=== PATIENT | female | born 1970 | race American Indian/Alaskan Native ===

== ENCOUNTER 2020-06-04 14:26 | Outpatient (CLI) | payer OTHER ==
[2020-06-04 14:51] LABS: Basophils # (Auto) 0.1 K/mm3 (0.0-0.1); Basophils % (Auto) 1.1 % (0.0-1.8); Eosinophils # (Auto) 0.3 K/mm3 (0.0-0.4); Eosinophils % (Auto) 3.1 % (0.0-4.3); Hematocrit 35.9 % (30.3-42.9); Hemoglobin 12.6 gm/dl (10.1-14.3); Lymphocytes # (Auto) 2.8 K/mm3 (1.2-5.4); Lymphocytes % (Auto) 33.4 % (13.4-35.0); Mean Corpuscular HGB Conc 35 % (30-34); Mean Corpuscular Volume 87 fl (79-97); Monocytes # (Auto) 0.7 K/mm3 (0.0-0.8); Platelet Count 401 K/mm3 (140-440); Red Blood Count 4.14 M/mm3 (3.65-5.03); Red Cell Distribution Width 13.9 % (13.2-15.2)
[2020-06-04 15:16] LABS: Alanine Aminotransferase 16 units/L (7-56); Albumin 4.4 g/dL (3.9-5); BUN/Creatinine Ratio 13; Blood Urea Nitrogen 10 mg/dL (7-17); Calcium 9.7 mg/dL (8.4-10.2); Chol/HDL Ratio 3.34 %; HDL Cholesterol 79 mg/dL (40-59); Hemolysis Index 28; Iron 60 ug/dL (37-170); LDL Cholesterol,Direct 191 mg/dL (50-130); Total Iron Binding Capacity 314 mcg/dL (250-450)
== END 2020-06-04 14:27 | disposition home or self-care (01) ==
LOC: LAB 14:26
PROVIDERS: ATTEND Surgery
DX: E11.9 Type 2 diabetes mellitus without complications (principal); E66.01 Morbid (severe) obesity due to excess calories; K30 Functional dyspepsia
CPT/HCPCS: 36415; 80053; 80061; 82306; 82607; 82728; 83036; 83550; 84443; 85025; 85730

== ENCOUNTER 2020-06-20 11:00 | Outpatient (CLI) | payer OTHER | END 2020-06-21 11:00 | disposition home or self-care (01) | LOC: SLR 11:00 | PROVIDERS: ATTEND Surgery | DX: G47.30 Sleep apnea, unspecified (principal) | CPT/HCPCS: G0399 ==

== ENCOUNTER 2020-07-17 07:59 | Outpatient (CLI) | payer OTHER ==
--- NOTE | 2020-07-17 10:51 | Fluoroscopy Report ---
UPPER GI HISTORY: FUNCTIONAL DYSPEPSIA. TECHNIQUE: Single and double contrast barium technique utilized to evaluate the esophagus, stomach, and duodenal C-loop. FINDINGS: To begin the exam, swallowing was evaluated in the lateral position under direct fluorosco py. Swallowing was normal. No mucosal irregularity, mass, mass effect, or critical stenosis. There were no abnormal tertiary c ontractions as seen with dysmotility. No gastroesophageal reflux. IMPRESSION: Unremarkable exam. Fluoroscopic time: 1.5 minutes minutes Number of fluoroscopic images: 19 Signer Name: Mao Tang Jr, MD Signed: 07/17/2020 10:47 AM Workstation Name: [id number]
== END 2020-07-17 08:00 | disposition home or self-care (01) ==
LOC: FLUORO 07:59
PROVIDERS: ATTEND Surgery
DX: K30 Functional dyspepsia (principal)
CPT/HCPCS: 74246

== ENCOUNTER 2020-07-21 06:34 | Day surgery (SDC) | payer OTHER ==
[2020-07-21] MEDS ORDERED: SODIUM CHLORIDE 0.9% 1000 ML 1,000 ML IV SCH (07:00)
--- NOTE | 2020-07-21 07:38 | Anesthesia Day of Surgery ---
Anesthesia Day of Surgery - Day of Surgery Patient Examined: Yes Patient H&P Reviewed: Yes Patient is NPO: Yes
--- NOTE | 2020-07-21 07:38 | Anesthesia Consultation ---
Anesthesia Consult and Med Hx Date of service: 07/21/20 - Airway Anesthetic Teeth Evaluation: Good, Chipped (some chipped front upper teeth) ROM Head & Neck: Adequate Mental/Hyoid Distance: Adequate Mallampati Class: Class III Intubation Access Assessment: Possibly Difficult - Pre-Operative Health Status ASA Pre-Surgery Classification: ASA3 Proposed Anesthetic Plan: MAC - Cardiovascular System Hx Hypertension: Yes - Endocrine Hx Hypothyroidism: Yes - Other Systems Hx Obesity: Yes (BMI 48.3)
[2020-07-21] MEDS ORDERED: propofoL 200 MG/20 ML VIAL IV ONE ×2 (08:27→08:42)
[2020-07-21] MEDS ORDERED: LIDOCAINE MPF (2%) 20 MG/1 ML VIAL 5 ML ONE (08:42)
--- NOTE | 2020-07-21 08:57 | Discharge Summary ---
Providers - Providers Date of Admission: 07/21/20 Date of discharge: 07/21/20 Attending physician: CHASTITY PENN MD Primary care physician: GADIEL CORTES MD Hospitalization Reason for admission: pre-op egd for bariatric surgery Condition: Good Procedures: egd Hospital course: Pt presented for a pre-op EGD as part of planning for up coming bariatric surgery. Procedure was uneventful and pt recovered well and was discharged to home. Disposition: - TO HOME OR SELFCARE Final Discharge Diagnosis (Prints w/discharge instructions): gerd Core Measure Documentation - Palliative Care Palliative Care/ Comfort Measures: Not Applicable - Core Measures Any of the following diagnoses?: none Exam - Physical Exam Narrative exam: unchanged from pre-op Plan Activity: no restrictions Diet: low carbohydrate Follow up with: GADIEL CORTES MD [Primary Care Provider] - 7 Days
--- NOTE | 2020-07-21 08:58 | Operative Report ---
Operative Report Operative Report: DATE: 07/21/20 SURGERY: Upper endoscopy. SURGEON: Ahsan Regalado M.D. PROCEDURE: EGD with biopsy PRE OP DX: morbid obesity, GERD POST OP DX: morbid obesity, GERD TYPE OF ANESTHESIA: MAC. ESTIMATED BLOOD LOSS: None. COMPLICATIONS: None. SPECIMENS REMOVED: antral biopsy FINDINGS: 1. Small hiatal hernia. 2. gastritis INDICATIONS:INDICATION FOR PROCEDURE: Patient is a 49-year-old female with a long history of morbid obesity. She is planned to have a weight loss procedure and is here for preoperative planning EGD. PROCEDURE DETAILS: After consent was reviewed, patient was taken back to the operating room where patient was placed in the left lateral decubitus position and a bite block was placed in the mouth. After a time-out was called, MAC anesthesia was initiated. I then passed the endoscope into her oropharynx, into her esophagus, visualized the entire esophagus, which was all within normal limits. Z-line was noted to about 35cm from incisors. I then visualized the stomach and the first portion of the duodenum and there were no abnormalities I could clearly visualize except for antral gastritis. A cold forceps biopsy of the antrum was taken and will be sent to pathology to evaluate for H.pylori. I then retroflexed the scope in the stomach and visualized the hiatus and I could see a small hiatal hernia. I then desufflated the stomach and removed the endoscope. Patient tolerated procedure well and was transferred to recovery room in good and stable condition.
--- NOTE | 2020-07-21 11:46 | Post Anesthesia Evaluation ---
- Post Anesthesia Evaluation Patient Participated: Yes Airway Patent: Yes Stable Respiratory Function: Yes Nausea/Vomiting: No Temp > 96.8F: Yes Pain Manageable: Yes Adequeate Hydration: Yes Anesthesia Complications: No
[2020-07-21 16:46] VITALS: BP 134/87
== END 2020-07-21 06:35 | disposition home or self-care (01) ==
LOC: GIO 06:34
PROVIDERS: ATTEND Surgery
DX: K21.9 Gastro-esophageal reflux disease without esophagitis (principal); E66.01 Morbid (severe) obesity due to excess calories; K44.9 Diaphragmatic hernia without obstruction or gangrene; K31.89 Other diseases of stomach and duodenum; K29.70 Gastritis, unspecified, without bleeding; I10 Essential (primary) hypertension; E03.9 Hypothyroidism, unspecified; Z68.42 Body mass index [BMI] 45.0-49.9, adult; Z79.899 Other long term (current) drug therapy
CPT/HCPCS: 43239; 88305; 88342; J2704

== ENCOUNTER 2020-08-17 07:30 | Inpatient (IN) | payer OTHER ==
--- NOTE | 2020-08-12 09:53 | Anesthesia Consultation ---
Anesthesia Consult and Med Hx Date of service: 08/17/20 - Airway Anesthetic Teeth Evaluation: Good ROM Head & Neck: Adequate Mental/Hyoid Distance: Adequate Mallampati Class: Class II Intubation Access Assessment: Probably Good - Pulmonary Exam CTA: Yes - Cardiac Exam Cardiac Exam: RRR - Pre-Operative Health Status ASA Pre-Surgery Classification: ASA3 Proposed Anesthetic Plan: General - Pulmonary Hx Smoking: No Hx Respiratory Symptoms: No (COVID infection 05/2020; some residual fatigue but otherwise resolved) Home Oxygen Therapy: No Hx Sleep Apnea: No (no significant MIKE on recent sleep study) - Cardiovascular System Hx Hypertension: Yes Hx Heart Attack/AMI: No Hx Percutaneous Transluminal Coronary Angioplasty (PTCA): No Hx Cardia Arrhythmia: No - Central Nervous System CVA: No - Endocrine Hx Renal Disease: No Hx Liver Disease: No Hx Insulin Dependent Diabetes: No Hx Non-Insulin Dependent Diabetes: No Hx Hypothyroidism: Yes - Other Systems Hx Obesity: Yes (BMI 47) - Additional Comments Anesthesia Medical History Comments: No hx anesthetic complications.
[2020-08-12 09:54] LABS: Hematocrit 38.6 % (30.3-42.9); Hemoglobin 13.1 gm/dl (10.1-14.3); Mean Corpuscular HGB Conc 34 % (30-34); Mean Corpuscular Volume 87 fl (79-97); Platelet Count 450 K/mm3 (140-440); Red Blood Count 4.42 M/mm3 (3.65-5.03); Red Cell Distribution Width 14.1 % (13.2-15.2)
[2020-08-12 10:21] LABS: Alanine Aminotransferase 17 units/L (7-56); BUN/Creatinine Ratio 10; Blood Urea Nitrogen 8 mg/dL (7-17); Calcium 9.7 mg/dL (8.4-10.2); Hemolysis Index 0
[~2020-08-17 07:30] MED LIST: ACETAMINOPHEN IV 1,000 MG/100 ML BOTTLE IV NR; LACTATED RINGERS 1,000 ML IV SCH; SCOPOLAMINE TRANSDERMAL PATCH 72 HR TD NR
[2020-08-17] MEDS ORDERED: metroNIDAZOLE/NS 500 MG/100 ML 500 MG/100 ML BAG IV NR (09:00)
[2020-08-17] MEDS ORDERED: ENOXAPARIN 40 MG/0.4 ML INJ SUB-Q SCH (09:00)
[2020-08-17] MEDS ORDERED: HYDROmorphone 1 MG/1 ML INJ IV PRN ×2 (10:00)
[2020-08-17] MEDS ORDERED: GABAPENTIN 500 MG/10 ML ORAL LIQD PO NR (10:00)
[2020-08-17] MEDS ORDERED: ONDANSETRON 4 MG/2 ML INJ IV PRN ×2 (10:00→14:30)
[2020-08-17] MEDS ORDERED: MIDAZOLAM 2 MG/2 ML INJ IV NR (10:00)
[2020-08-17] MEDS ORDERED: LIDOCAINE 1%/EPINEPHRINE 1:100,000 VIAL (20 ML) INFILTRATI ONE ×2 (10:07→12:40)
[2020-08-17] MEDS ORDERED: BUPIVACAINE/PF (0.25%) 2.5 MG/ML 30 ML VIAL INFILTRATI ONE ×2 (10:07→12:40)
[2020-08-17] MEDS ORDERED: ONDANSETRON 4 MG/2 ML INJ ONE (11:00)
[2020-08-17] MEDS ORDERED: LIDOCAINE MPF (2%) 20 MG/1 ML VIAL 5 ML ONE (11:00)
[2020-08-17] MEDS ORDERED: ROCURONIUM 50 MG/5 ML INJ IV ONE (11:00)
[2020-08-17] MEDS ORDERED: KETOROLAC 30 MG/1 ML INJ ONE ×2 (11:00→12:28)
[2020-08-17] MEDS ORDERED: PHENYLEPHRINE/NS 1,000 MCG/10 ML SYRINGE (OR USE) IV ONE (11:00)
[2020-08-17] MEDS ORDERED: dexAMETHasone 20 MG/5 ML VIAL ONE (11:00)
[2020-08-17] MEDS ORDERED: KETAMINE/STERILE WATER 50 MG/ML SYRINGE ONE (11:02)
[2020-08-17] MEDS ORDERED: ePHEDrine SULFATE 50 MG/1 ML INJ ONE (11:53)
[2020-08-17] MEDS ORDERED: SUGAMMADEX SODIUM 200 MG/2 ML VIAL IV ONE (12:25)
[2020-08-17] MEDS ORDERED: SODIUM CHLORIDE 0.9% IRR 1,500 ML BOTTLE IR ONE (12:41)
--- NOTE | 2020-08-17 13:10 | Operative Report ---
Operative Report Operative Report: DATE:08/17/2020 Surgeon: Ahsan Regalado MD [employer] surgeon: Silvina Xiao CSA MD Pre-op Dx: morbid obesity, hiatal hernia Post-op Dx: morbid obesity, hiatal hernia Procedure: 1. laparoscopic sleeve gastrectomy, 2. hiatal hernia repair Anesthesia: GETA and TAP block EBL: <10ml Specimen: gastric remnant Complication: none immediate Indication: 49 year old female with a history of morbid obesity . Pt is here for sleeve gastrectomy for weight loss to achieve healthier weight and improve or resolve his co-morbidities. She expressed understanding of the risks and benefits. PROCEDURE IN DETAIL: After consent was reviewed, patient was taken back to the operating room, where patient was placed supine on the bed with both arms out. The patient's legs were doubly strapped to the bed. Patient had a foot board in place. Patient had a body warmer placed by anesthesia. General anesthesia was induced with successful endotracheal intubation. Patient was then prepped and draped in normal sterile surgical fashion. After a time-out was called, I made a stab incision in the left subcostal area and placed a Veress needle through this incision and insufflated the abdomen to 18 mmHg pressure. I then counted down a handsbreadth below the xiphoid process in the midline and slightly left lateral injected local anesthetic and made about 1 cm transverse incision. I then used a 5-mm Optiview trocar to enter into the abdomen. There was no gross injury to any intra-abdominal structures. I then placed a 30-degree scope through this port and inspected the abdomen. I then placed a 5-mm port in the right upper quadrant, and 1 5mm in the epigastric area below the costovertebral angle. I then placed a 15-mm port about a handsbreadth in the right mid abdomen. After which a 5mm port was placed in left upper quadrant port along the anterior axillary line in a similar fashion. A liver retractor was placed to the epigastric port to elevate the left lateral lobe and liver. There was a small hiatal hernia appreciated that was accentuated with right and left crural dissection. Hiatal hernia sac was dissected from the crura until the GE junction was resting about 2cm below the level of the diaphragm without tension. An anterior crura-plasty was preformed a U-stitch using surgidac suture. The a nterior gastric fat pad was excised. Starting approximately 6 cm proximal to the pylorus, using a LigaSure device the short gastrics were taken all the way to the left kavitha. Once the lateral portion of the stomach was mobile anesthesia passed a 40 Kazakh bougie along the medial aspect to act as a stent. Using serial firings of endoscopic stapler to gold, followed by 4 blue, the lateral portion of the stomach was transected making sure to did not close to the 2 cm to the incisura. All staple loads were supported with Ethicon buttress strips. The sleeve stomach was seen to be without kink obstruction or twisting. The pressure was decreased to 10 mmHg. The staple line was inspected for approximately 5 minutes. There was no significant bleeding appreciated except for a slight loose at the most distal portion of the staple line. Bleeding was minimal and easily controlled with minimal cautery. Tisseel was then sprayed along the entirety of the staple line. The liver retractor was removed. A TAP block was performed with 60ml of 0.25% marcaine along bilateral mid axillary lines starting from the subcostal region to just below the level of the umbilicus This was after the gastric remnant was grasped and pulled into the 15 mm trocar site. The stomach was extracted via the 15 mm trocar site. After the fascia had to be stretched with a Latrice clamp to easily remove the stomach, the fascia was closed using a trav beatriz device at the level of the fascia with an 0 PDS. trocars were removed under direct visualization. All skin incisions were closed with 4-0 Monocryl followed by Dermabond. Patient was awoken, extubated, and taken to recovery stable condition. All counts were correct.
[2020-08-17] MEDS: KETOROLAC 30 MG/1 ML INJ IV SCH ×2 (14:00→22:06)
[2020-08-17] MEDS ORDERED: MORPHINE 2 MG/1 ML INJ IV PRN (14:30)
[2020-08-17] MEDS ORDERED: HYDROcodone/Acetaminophen 7.5-325MG-15ML ORAL LIQD PO PRN (14:30)
[2020-08-17] MEDS ORDERED: hydrALAZINE 20 MG/1 ML INJ IV PRN (14:30)
[2020-08-17] MEDS ORDERED: METOCLOPRAMIDE 10 MG/2 ML INJ IV PRN (15:00)
--- NOTE | 2020-08-17 15:32 | Post Anesthesia Evaluation ---
- Post Anesthesia Evaluation Patient Participated: Yes Airway Patent: Yes Stable Respiratory Function: Yes Nausea/Vomiting: No Temp > 96.8F: Yes Pain Manageable: Yes Adequeate Hydration: Yes Anesthesia Complications: No Block Receding Appropriately: Not Applicable Patient on Ventilator: No
--- NOTE | 2020-08-17 15:32 | Anesthesia Day of Surgery ---
Anesthesia Day of Surgery - Day of Surgery Patient Examined: Yes Patient H&P Reviewed: Yes Patient is NPO: Yes (Late entry. I saw patient preoperatively)
--- NOTE | 2020-08-17 16:04 | Event Note ---
Date: 08/17/20 Ms. Blum is a patient who had bariatric surgery today with a history of testing positive for COVID on 08/12/2020. She tested positive initially 06/2020 and has fully recovered. Like many patients in this phase of the COVID-19 pandemic she is continuing to shed virus particles triggering a positive test, but is no longer contagious. Per the CDC, and Dr. Wakefield (head of ID) patients are no longer considered contagious 14 days after testing positive or upon onset of symptoms. Immune compromised patients up to 20 days on average. There is no need to retest or consider an asymptomatic patient contagious until 90 days from initial infection. This patient needs to be transferred to the bariatric floor that is designed and staffed for the specific needs of the bariatric patient. I spoke with Tiarra Pena the CNO about this and we are in agreement she does not meet the criteria to not be on the Bariatric floor. She should be transferred to the appropriate bariatric unit as soon as a bed is available.
[2020-08-17] MEDS: ceFAZolin/NS 1 GM/50 ML 1 GM/50 ML BAG IV SCH (17:26)
[2020-08-17] MEDS: metroNIDAZOLE/NS 500 MG/100 ML 500 MG/100 ML BAG IV SCH (17:26)
[2020-08-17] MEDS: FAMOTIDINE 20 MG/2 ML INJ IV SCH (18:27)
[2020-08-17] MEDS: ACETAMINOPHEN IV 1,000 MG/100 ML BOTTLE IV SCH (18:27)
[2020-08-17] MEDS: LACTATED RINGERS 1,000 ML IV SCH (22:59)
[2020-08-18] MEDS: SIMETHICONE 80 MG CHEW TAB PO PRN ×3 (00:05→21:07)
[2020-08-18] MEDS: ACETAMINOPHEN IV 1,000 MG/100 ML BOTTLE IV SCH ×4 (00:18→20:49)
[2020-08-18] MEDS: metroNIDAZOLE/NS 500 MG/100 ML 500 MG/100 ML BAG IV SCH ×2 (01:51→10:18)
[2020-08-18] MEDS ORDERED: ceFAZolin/NS 1 GM/50 ML 1 GM/50 ML BAG IV SCH (02:00)
[2020-08-18] MEDS: ceFAZolin/NS 1 GM/50 ML 1 GM/50 ML BAG IV SCH (03:11)
[2020-08-18] MEDS: KETOROLAC 30 MG/1 ML INJ IV SCH ×4 (03:31→21:07)
[2020-08-18 05:31] LABS: Basophils % (Auto) 0.1 % (0.0-1.8); Hematocrit 37.3 % (30.3-42.9); Hemoglobin 12.2 gm/dl (10.1-14.3); Lymphocytes # (Auto) 1.4 K/mm3 (1.2-5.4); Lymphocytes % (Auto) 10.9 % (13.4-35.0); Mean Corpuscular HGB Conc 33 % (30-34); Mean Corpuscular Volume 88 fl (79-97); Monocytes # (Auto) 0.9 K/mm3 (0.0-0.8); Monocytes % (Auto) 7.2 % (0.0-7.3); Platelet Count 373 K/mm3 (140-440); Red Blood Count 4.25 M/mm3 (3.65-5.03); Red Cell Distribution Width 14.1 % (13.2-15.2)
[2020-08-18] MEDS: LEVOTHYROXINE 25 MCG TAB PO SCH (05:53)
[2020-08-18 05:54] LABS: Alanine Aminotransferase 15 units/L (7-56); Albumin 3.8 g/dL (3.9-5); Blood Urea Nitrogen 7 mg/dL (7-17); Calcium 8.8 mg/dL (8.4-10.2); Hemolysis Index 0
[2020-08-18 06:02] LABS: BUN/Creatinine Ratio 10
[2020-08-18] MEDS: LEVOTHYROXINE 112 MCG TAB PO SCH (07:03)
--- OUTSIDE RECORDS SUMMARY | 2020-08-18 07:10 | External Medical Summary ---
:1970 Author Organization [facility], [facility] Address [address] [place] [address] Care Team Providers Name Role Phone Ahsan Regalado Unavailable [phone] PROBLEMS Type Condition ICD9-CM [id number] Onset Condition W/U Status Risk SNOM ED Notes Code Code Dates Status Code Problem Body mass Z68.42 Active confirmed 289570555 index [BMI] 45.0-49.9, adult Problem Dietary Z71.3 Active confirmed 557114895 counseling and surveillance Problem Functional K30 Active confirmed 8976736 dyspepsia Problem Gastro-esopha K21.9 Active confirmed 804131 005 geal reflux disease without esophagitis Problem Essential I10 Active confirmed 06381544 (primary) hypertension Problem Sleep G47.9 Active confirmed 37261314 disorder, unspecified Problem Morbid E66.01 Active confirmed 788643996 (severe) obesity due to excess calories Problem Hypothyroidis E03.9 Active confirmed 937736 08 m, unspecified ALLERGIES No Known Allergies ENCOUNTERS from 1970 to 2020-08-14 Encounter Location Date Provider Diagnosis [facility] Jul, Ahsan Regalado [address] ([address] obesity due to excess of [place], [place] calorie s E66.01 ; [address] Hypothyroidism, unspecified E03 .9 and Essential (prim harrison) hypertension I1 0 IMMUNIZATIONS No Information SOCIAL HISTORY Sex Assigned At : Social History Observation Description Sex Assigned At Unknown REASON FOR REFERRAL from 1970 to 2020-08-14 Diagnosis 1 Hypothyroidism, unspecified (E03.9) Diagnosis 2 Morbid (severe) obesity due to excess calories (E66.01) Diagnosis 3 Essential (primary) hyperten alfonso (I10) Diagnosis 4 Functional dyspepsia (K30) Diagnosis 5 Sleep disorder, unspecified (G47.9) Diagnosis 6 Dietary counseling and surve illance (Z71.3) Diagnosis 7 Body mass index [BMI] 45.0-4 9.9, adult (Z68.42) Diagnosis 8 Pain in right knee (M25.561) Diagnosis 9 Gastro-esophageal reflux dis ease without esophagitis (K21.9) Referral Organization [facility] Referring Provider First Name Ahsan Referring Provider Last Name Fabricio Referring Provider Specialty Surgery Referred Provider [facility], - Referral Priority Routine VITAL SIGNS Height 63 in Jul, Weight 267.8 lbs Jul, Temperature 97.7 degrees Fahrenheit Jul, BMI 47.43 kg/m2 Jul, Blood pressure systolic 151 mm Hg Jul, Blood pressure diastolic 94 mm Hg Jul, MEDICATIONS Medication SIG (Take, Route, Notes Start Date End Date Status Frequency, Duration) Levothyroxine Sodium 37.5 Acti ve Hydrocodone-Acetaminophen 15 ml as needed Jul, Jul, Active 7.5-325 MG/15ML Orally every 6 hrs for 7 days Omeprazole 40 MG 1 capsule Orally Jul, Active Once a day for 30 day(s) Hydrochlorothiazide Activ e Biotin Active Zofran 4 MG 1-2 tablet Orally Jul, Acti ve every 4-6 hours prn nausea for 30 day(s) Multivitamin Active PROCEDURES No Information RESULTS No Results REASON FOR VISIT PreOp Sleeve MEDICAL (GENERAL) HISTORY Type Description Date Medical History hypothyroid Medical History gerd Medical History right knee pain Medical History eczema Medical History htn Surgical History 2004 Hospitalization History as above Goals Section No Information Health Concerns No Information MEDICAL EQUIPMENT No Information MENTAL STATUS No Information FUNCTIONAL STATUS No Information ASSESSMENTS Encounter Date Diagnosis Assessment Notes Treatment Notes Treatm ent Clinical Notes Jul, Morbid (severe) An hour was spent obesity due to with patient excess calories reinforcing diet, (ICD-10 - E66.01) vitamin requirements and lifestyle education, A quiz was administered and reviewed to verify understanding of intended procedure and post operative care. Consent forms for sleeve gastrectomy were reviewed with patient and signed answering all questions, Pre-operative labs were ordered. Jul, Hypothyroidism, continue unspecified (ICD-10 medications - E03.9) Jul, Essential (primary) Should resolve or hypertension greatly improve (ICD-10 - I10) with weight loss after bariatric surgery Jul, Other pt encounter took about 45 minutes PLAN OF TREATMENT Medication Medication Name Sig Start Date Stop Date Omeprazole 40 MG 1 capsule Orally Once a day Jul, for 30 day(s) Zofran 4 MG 1-2 tablet Orally every 4-6 Jul, hours prn nausea for 30 day(s) Hydrocodone-Acetaminophen 15 ml as needed Orally every Jul, 2 021 16 Jul, 2020 7.5-325 MG/15ML 6 hrs for 7 days Treatment Notes Assessment Notes Clinical Notes Morbid (severe) obesity due to An hour was spent with leighton t excess calories reinforcing diet, vitamin requirements and lifestyle education, A quiz was administered and reviewed to verify understanding of intended procedure and post operative care. Consent forms for sleeve gastrectomy were reviewed with patient and signed answering all questions, Pre-operative labs were ordered. Hypothyroidism, unspecified continue medications Essential (primary) hypertension Should resolve or greatly i mprove with weight loss after bariatric surgery Referrals Referral Date Details Next Appt Details for surgery Reason: Provider Name:Ahsan Regalado, 2020-07-30 9 07:30:00 AM, [address] [place] [address], [address], [place], [address], [phone] Insurance Providers Payer Name Payer Payer Insured Name Patient Coverage Covera ge End Address Phone Relationship to Start Date Vic e Insured [employer] [address] [address] [phone] Nathalie Blum [facility] [id number]
[2020-08-18] MEDS ORDERED: LEVOTHYROXINE 137 MCG PO SCH (10:00)
[2020-08-18] MEDS: LACTATED RINGERS 1,000 ML IV SCH (10:12)
[2020-08-18] MEDS: FAMOTIDINE 20 MG/2 ML INJ IV SCH (10:14)
[2020-08-18] MEDS: ENOXAPARIN 40 MG/0.4 ML INJ SUB-Q SCH (10:15)
--- NOTE | 2020-08-18 10:39 | Post Anesthesia Evaluation ---
- Post Anesthesia Evaluation Patient Participated: Yes Airway Patent: Yes Stable Respiratory Function: Yes Nausea/Vomiting: No Temp > 96.8F: Yes Pain Manageable: Yes Adequeate Hydration: Yes Anesthesia Complications: No Block Receding Appropriately: Yes Patient on Ventilator: No
--- NOTE | 2020-08-18 11:54 | Progress Note ---
Assessment and Plan POD#1 s/p lap sleeve gastrectomy with hiatal hernia repair. Afebrile and stable showing no clinical signs of leak or bleeding. Will continue to encourage PO intake and frequent ambulation. Will plan for discharge tomorrow. Subjective Date of service: 08/18/20 Patient Reports: Positive: no new complaints, afebrile. Negative: nausea (no acute events overnight. pt is tolerating small sips of liquids and ambulating. ), vomiting Objective Vital Signs - 12hr 08/18/20 08/18/20 08/18/20 00:18 01:18 03:31 Temperature Pulse Rate Respiratory 17 18 17 Rate Blood Pressure O2 Sat by Pulse Oximetry 08/18/20 08/18/20 08/18/20 04:01 05:46 06:47 Temperature 97.7 F Pulse Rate 92 H Respiratory 17 18 17 Rate Blood Pressure 132/80 O2 Sat by Pulse 98 Oximetry 08/18/20 08/18/20 07:34 07:47 Temperature 97.7 F Pulse Rate 89 Respiratory 18 17 Rate Blood Pressure 136/79 O2 Sat by Pulse 97 Oximetry - General physical appearance well developed, well nourished, no distress, no pain, obese - Respiratory normal expansion, normal respiratory effort - Abdomen soft, not tender, not guarding, not rigid, other (incisions c/d/i, appropriatley tender to palpation) - Labs 08/18/20 05:19 08/18/20 05:19 Diabetes panel 08/18/20 Range/Units 05:19 Sodium 138 (137-145) mmol/L Potassium 4.1 (3.6-5.0) mmol/L Chloride 99.4 (98-107) mmol/L Carbon Dioxide 30 (22-30) mmol/L BUN 7 (7-17) mg/dL Creatinine 0.7 (0.6-1.2) mg/dL Glucose 109 H (65-100) mg/dL Calcium 8.8 (8.4-10.2) mg/dL AST 25 (5-40) units/L ALT 15 (7-56) units/L Alkaline Phosphatase 61 (35-129) units/L Total Protein 7.0 (6.3-8.2) g/dL Albumin 3.8 L (3.9-5) g/dL Calcium panel 08/18/20 Range/Units 05:19 Calcium 8.8 (8.4-10.2) mg/dL Albumin 3.8 L (3.9-5) g/dL Pituitary panel 08/18/20 Range/Units 05:19 Sodium 138 (137-145) mmol/L Potassium 4.1 (3.6-5.0) mmol/L Chloride 99.4 (98-107) mmol/L Carbon Dioxide 30 (22-30) mmol/L BUN 7 (7-17) mg/dL Creatinine 0.7 (0.6-1.2) mg/dL Glucose 109 H (65-100) mg/dL Calcium 8.8 (8.4-10.2) mg/dL Adrenal panel 08/18/20 Range/Units 05:19 Sodium 138 (137-145) mmol/L Potassium 4.1 (3.6-5.0) mmol/L Chloride 99.4 (98-107) mmol/L Carbon Dioxide 30 (22-30) mmol/L BUN 7 (7-17) mg/dL Creatinine 0.7 (0.6-1.2) mg/dL Glucose 109 H (65-100) mg/dL Calcium 8.8 (8.4-10.2) mg/dL Total Bilirubin 0.40 (0.1-1.2) mg/dL AST 25 (5-40) units/L ALT 15 (7-56) units/L Alkaline Phosphatase 61 (35-129) units/L Total Protein 7.0 (6.3-8.2) g/dL Albumin 3.8 L (3.9-5) g/dL
[2020-08-19] MEDS: KETOROLAC 30 MG/1 ML INJ IV SCH ×2 (01:08→10:38)
[2020-08-19] MEDS: LEVOTHYROXINE 112 MCG TAB PO SCH (05:55)
[2020-08-19] MEDS: LEVOTHYROXINE 25 MCG TAB PO SCH (05:55)
[2020-08-19] MEDS: LACTATED RINGERS 1,000 ML IV SCH (06:06)
[2020-08-19 08:46] VITALS: BP 131/76
[2020-08-19 09:00] LABS: Basophils # (Auto) 0.1 K/mm3 (0.0-0.1); Basophils % (Auto) 0.5 % (0.0-1.8); Eosinophils % (Auto) 0.2 % (0.0-4.3); Hemoglobin 11.1 gm/dl (10.1-14.3); Lymphocytes # (Auto) 2.1 K/mm3 (1.2-5.4); Lymphocytes % (Auto) 22.7 % (13.4-35.0); Mean Corpuscular HGB Conc 34 % (30-34); Mean Corpuscular Volume 88 fl (79-97); Monocytes # (Auto) 0.8 K/mm3 (0.0-0.8); Monocytes % (Auto) 8.7 % (0.0-7.3); Platelet Count 312 K/mm3 (140-440); Red Blood Count 3.75 M/mm3 (3.65-5.03); Red Cell Distribution Width 13.7 % (13.2-15.2)
[2020-08-19 09:22] LABS: Alanine Aminotransferase 12 units/L (7-56); Albumin 3.1 g/dL (3.9-5); BUN/Creatinine Ratio 11; Blood Urea Nitrogen 9 mg/dL (7-17); Calcium 8.3 mg/dL (8.4-10.2); Hemolysis Index 5
[2020-08-19] MEDS: ENOXAPARIN 40 MG/0.4 ML INJ SUB-Q SCH (10:23)
[2020-08-19] MEDS: FAMOTIDINE 20 MG/2 ML INJ IV SCH (10:23)
--- NOTE | 2020-08-19 11:03 | Discharge Summary ---
Providers - Providers Date of Admission: 08/17/20 09:18 Date of discharge: 08/19/20 Attending physician: CHASTITY PENN MD 08/17/20 13:02 Physical Therapy Evaluation and Treat [CONS] Routine Comment: Reason For Exam: post op bariatric surgery Primary care physician: GADIEL CORTES MD Hospitalization Reason for admission: s/p gastric sleeve with hiatal hernia repair Condition: Good Procedures: lap gastric sleeve w/ HHR Hospital course: Pt had an uneventful lap gastric sleeve with hiatal hernia repair. She recovered well after the procedure having normal vital signs, and labs. She was tolerating sips of clear liquids and ambulating well with pain well controlled. She showed no clinical signs of leak or bleeding prior to discharge. Disposition: - TO HOME OR SELFCARE Final Discharge Diagnosis (Prints w/discharge instructions): morbid obesity, hiatal hernia Core Measure Documentation - Palliative Care Palliative Care/ Comfort Measures: Not Applicable - Core Measures Any of the following diagnoses?: none Exam - Constitutional Vitals: Temp Pulse Resp BP Pulse Ox 98.0 F 73 18 131/76 97 08/19/20 07:50 08/19/20 04:58 08/19/20 07:50 08/19/20 07:50 08/19/20 09:58 General appearance: Present: no acute distress, well-nourished, obese - Respiratory Respiratory effort: normal - Cardiovascular Heart Sounds: Present: S1 & S2 - Extremities Extremities: no ischemia - Abdominal General gastrointestinal: Present: soft, non-tender, non-distended Plan Activity: advance as tolerated Diet: clear liquids Wound: open to air, keep clean and dry Additional Instructions: pt will return to the office for post op visit in 2 weeks Follow up with: GADIEL CORTES MD [Primary Care Provider] - 7 Days
== END 2020-08-19 16:29 | disposition home or self-care (01) | DRG 619 ==
LOC: 3A 09:18 → 3B-SURG 23:21
PROVIDERS: ADMIT Surgery; ATTEND Surgery
PROC: 0DB64Z3 Excision of Stomach, Percutaneous Endoscopic Approach, Vertical (ICD-10-PCS; principal; 2020-08-17)
PROC: 0BQT4ZZ Repair Diaphragm, Percutaneous Endoscopic Approach (ICD-10-PCS; 2020-08-17)
DX: E66.01 Morbid (severe) obesity due to excess calories (principal); U07.1 COVID-19; Z68.42 Body mass index [BMI] 45.0-49.9, adult; Z71.3 Dietary counseling and surveillance; K44.9 Diaphragmatic hernia without obstruction or gangrene; I10 Essential (primary) hypertension; G47.9 Sleep disorder, unspecified; E03.9 Hypothyroidism, unspecified; K21.9 Gastro-esophageal reflux disease without esophagitis; Z79.899 Other long term (current) drug therapy; Z79.891 Long term (current) use of opiate analgesic; Z79.01 Long term (current) use of anticoagulants; Z82.49 Family history of ischemic heart disease and other diseases of the circulatory system; Z86.16 Personal history of COVID-19; Z82.62 Family history of osteoporosis; Z83.49 Family history of other endocrine, nutritional and metabolic diseases; Z84.89 Family history of other specified conditions
CPT/HCPCS: 36415; 80053; 84703; 85025; 85027; 88307; G0378; C9250; J0131; J0690; J1100; J1170; J1650; J1885; J2250; J2270; J2370; J2405; J2704; J2765; J3490; J7120; U0003

== ENCOUNTER 2020-09-23 11:48 | Outpatient (CLI) | payer OTHER ==
[2020-09-23 13:17] LABS: Basophils # (Auto) 0.1 K/mm3 (0.0-0.1); Basophils % (Auto) 1.3 % (0.0-1.8); Eosinophils # (Auto) 0.2 K/mm3 (0.0-0.4); Eosinophils % (Auto) 3.1 % (0.0-4.3); Hematocrit 37.5 % (30.3-42.9); Hemoglobin 12.7 gm/dl (10.1-14.3); Lymphocytes # (Auto) 2.4 K/mm3 (1.2-5.4); Mean Corpuscular HGB Conc 34 % (30-34); Mean Corpuscular Volume 87 fl (79-97); Monocytes # (Auto) 0.7 K/mm3 (0.0-0.8); Monocytes % (Auto) 11.9 % (0.0-7.3); Platelet Count 326 K/mm3 (140-440); Red Blood Count 4.32 M/mm3 (3.65-5.03); Red Cell Distribution Width 13.8 % (13.2-15.2)
[2020-09-23 13:39] LABS: Alanine Aminotransferase 25 units/L (7-56); Albumin 3.9 g/dL (3.9-5); Blood Urea Nitrogen 6 mg/dL (7-17); Calcium 9.3 mg/dL (8.4-10.2); Chol/HDL Ratio 3.63 %; HDL Cholesterol 61 mg/dL (40-59); Hemolysis Index 0; Iron 60 ug/dL (37-170); LDL Cholesterol,Direct 149 mg/dL (50-130); Total Iron Binding Capacity 257 mcg/dL (250-450)
[2020-09-23 14:04] LABS: BUN/Creatinine Ratio 10
[2020-09-27 12:49] LABS: Vitamin D, 25-OH, D2 <4 ng/mL
== END 2020-09-23 11:49 | disposition home or self-care (01) ==
LOC: LAB 11:48
PROVIDERS: ATTEND Surgery
DX: E11.9 Type 2 diabetes mellitus without complications (principal); K30 Functional dyspepsia; E55.9 Vitamin D deficiency, unspecified; K90.9 Intestinal malabsorption, unspecified; E66.01 Morbid (severe) obesity due to excess calories; Z98.84 Bariatric surgery status
CPT/HCPCS: 36415; 80053; 80061; 82306; 82607; 82728; 83036; 83550; 83970; 84425; 84443; 85025